=== PATIENT | female | born 1965 | race Caucasian/White ===

== ENCOUNTER → 2017-05-16 | Outpatient (CLI) | payer OTHER ==
[2017-05-12 15:22] VITALS: BMI 27.2
[2017-05-16 12:14] VITALS: BP 111/74; PULSE 72; RESP 16; TEMP 98.5
--- NOTE | 2017-05-16 12:59 | P.HPIM ---
History of Present Illness H&P Date: 05/16/17 This is a 51-year-old patient referred by Dr. Worley for chronic pain in neck, mid- back, and low back with radiation to RLE down to just above right knee. Patient has been taking medications from primary care physician including Hessmer medications with some relief and Ambien for sleep. She also uses marijuana regularly and has done so for the past nine months. Patient denies adverse drug effects from medications. Patient also denies new-onset weakness, bowel/ bladder incontinence, or any other signs or symptoms of cauda equina syndrome. There are no signs of acute intoxication, and no indications of medication diversion or overuse. Patient notes that pain worsens significantly with lifting or bending the legs and improves with rest, THC, and medication. Patient has used several types of medications for pain, including NSAIDS, OPIOIDS (Hessmer), tramadol, ANTIDEPRESSANTS (Cymbalta). Patient HAS NOT had surgery. Patient HAS NOT had injections previously. Patient HAS NOT had physical therapy recently. In addition to above, 13-point review of systems is also negative for chest pain , shortness of breath, changes in vision, changes in hearing, new onset weakness , abdominal pain, diarrhea, extreme fatigue, malaise, fever, skin changes, homicidal or suicidal ideation, or bowel or bladder incontinence. Vital Signs: Reviewed in EMR Gen: WDWN, AAOx3, NAD HEENT: NCAT, EOMI, hearing grossly normal Pulm: resp unlabored Abd: soft, NT, ND Neck: supple, trachea midline Cervical paravertebral tenderness: ++ Cervical Facet tenderness: + R side Thoracic paravertebral tenderness: ++ ROM in flexion lumbar spine: reduced ROM in extension lumbar spine: reduced Lumbar paravertebral tenderness: ++ Facet loading: + bilateral SI joint tenderness: neg Nimesh's test: neg Straight leg raise: + RLE at 10 degrees with numbness/tingling into right thigh Lower extremity: decreased ROM bilateral LEs secondary to pain Neuro: CN II-XII grossly intact Past Medical History Past Medical History: COPD, Fibromyalgia, Osteoarthritis (OA) Additional Past Medical History / Comment(s): insomnia, degenerative disks, History of Any Multi-Drug Resistant Organisms: None Reported Past Surgical History: Cholecystectomy, Hysterectomy Past Anesthesia/Blood Transfusion Reactions: No Reported Reaction Smoking Status: Current every day smoker - Past Family History Mother Family Medical History: Cancer Medications and Allergies Home Medications Medication Instructions Recorded Confirmed Type DULoxetine HCL [Cymbalta] 60 mg PO DAILY 04/23/16 05/16/17 History Albuterol Nebulized [Ventolin 2.5 mg INHALATION TID 05/12/17 05/16/17 History Nebulized] Cetirizine HCl [Zyrtec] 10 mg PO DAILY 05/12/17 05/16/17 History HYDROcodone/APAP 10-325MG [Hessmer 1 tab PO TID PRN 05/12/17 05/16/17 History 10-325] Montelukast [Singulair] 10 mg PO HS 05/12/17 05/16/17 History Omeprazole [PriLOSEC] 20 mg PO AC-BRKFST 05/12/17 05/16/17 History QUEtiapine [SEROquel] 50 mg PO HS 05/12/17 05/16/17 History Allergies Allergy/AdvReac Type Severity Reaction Status Date / Time No Known Allergies Allergy Verified 05/16/17 12:05 Physical Exam Vitals: Vital Signs Temp Pulse Resp BP Pulse Ox 05/16/17 12:07 98.5 F 72 16 111/74 99 Results Comments: MRI lumbar spine without contrast dated 03/10/2016 demonstrates the T12-L1, L1- L2, L2-L3, L3-L4, and L4-L5 levels are all within normal limits. The L5-S1 level demonstrates central disc protrusion mildly effacing the anterior thecal sac with patent bilateral neural foramina. Assessment and Plan (1) Fibromyalgia Status: Chronic (2) Lumbar disc herniation Status: Chronic (3) DDD (degenerative disc disease), lumbar Status: Chronic Plan: 1. Explanation: Opioid and psychological risk scores were reviewed. Diagnoses , prognoses, and multiple treatment options including but not limited to physical therapy, interventional therapies, adjuvant medical therapies, narcotic medication therapies, and surgery were discussed with the patient and all questions were answered to the patient's satisfaction. 2. Opioid agreement: none prescribed 3. Counseling: The patient was counseled extensively on SMOKING CESSATION, MARIJUANA, BODY MASS INDEX, EXERCISE. Specifically, the patient was instructed regarding the importance of smoking cessation, weight control, and exercise in the context of both chronic pain and overall health. 4. Procedures: lumbar and thoracic paraspinal TPI, consider LESI in future if numbness/tingling in RLE worsens 5. Consultations: none 6. Investigations: none 7. Medications: none prescribed 8. Disposition: f/u for procedure as scheduled PQRS measures: 1-Patient's medications are documented in the chart. 2-Tobacco use is positive, counseling given 3-Patient has not had a pneumococcal vaccine. 4-Advanced care planning discussed, patient unable to give. 5-Opioid contract signed with the patient. 6-Pain positive, follow-up visit or procedure scheduled 7-Patient's blood pressure measured and documented, and WNL. 8-Patient's weight was measured, and body mass index ABOVE the normal limits, and counseling was done. Patient instructed to follow up with PCP. 9-Patient WAS NOT identified as an unhealthy alcohol user. Time with Patient: Greater than 30
== END | disposition home or self-care (01) ==
LOC: PNWHC3 11:43
PROVIDERS: ATTEND Anesthesiology
DX: M51.26 Other intervertebral disc displacement, lumbar region (principal); M79.7 Fibromyalgia; M51.36 Other intervertebral disc degeneration, lumbar region; J44.9 Chronic obstructive pulmonary disease, unspecified; M19.90 Unspecified osteoarthritis, unspecified site; Z79.899 Other long term (current) drug therapy
CPT/HCPCS: 99211

== ENCOUNTER 2017-06-06 07:51 | Day surgery (SDC) | payer OTHER ==
[2017-06-02 14:23] VITALS: BMI 26.2
[2017-06-06] MEDS ORDERED: LACTATED RINGERS 1,000 ML IV ONE ×2 (08:15→09:09)
[2017-06-06 09:09] VITALS: RESP 18; TEMP 98.7
[2017-06-06] MEDS ORDERED: LIDOCAINE 1% 20 ML VIAL (10MG/ML) FOR IV START INTRADERMA ONE (09:16)
[2017-06-06] MEDS ORDERED: IV FLUID CONTINUATION 1,000 ML IV ONE ×2 (09:50)
--- NOTE | 2017-06-06 09:58 | P.PCN ---
Date of Procedure: 06/06/17 Surgeon: David Garrison Pathology: none sent Condition: stable Disposition: PACU Description of Procedure: PREOPERATIVE DIAGNOSIS: 1-myofascial pain syndrome POSTOPERATIVE DIAGNOSIS: 1-myofascial pain syndrome PROCEDURE 1. Trigger point injections (thoracic + lumbar paraspinal muscles) ANESTHESIA: Local with 1% lidocaine; IV sedation with Versed EBL: Minimal PROCEDURE INDICATION: The patient with myofascial pain in the area of the mid and low back that has not responded to conservative therapy. Patient presents for trigger point injection today; no use of blood thinners. PROCEDURE DESCRIPTION / TECHNIQUE: The patient was seen and identified in the preoperative area. Risks, benefits, complications, and alternatives were discussed with the patient, including but not limited to bleeding, infection, nerve damage, allergic reactions to medications, and incomplete pain relief. The patient agreed to proceed with the procedure and signed the consent after all questions were answered. IV was started, and vital signs were stable. Trigger points were marked prior to entering the procedure room in the places where the patient had severe pain to muscle palpation. Patient was taken to the OR and time out was completed to confirm patient position, procedure, laterality of pain, and allergies. The patient was placed in the prone position on procedure table and a pillow was placed under the abdomen to reduce lumbar lordosis. The area over the relevant muscle (thoracic and lumbar paraspinal area) was prepped and draped in the usual sterile fashion. Vital signs were closely monitored during the procedure. Conscious sedation was used during the procedure to decrease patients anxiety. Each of the previously marked areas was then infiltrated with 1% plain lidocaine using a 25g needle. After this, each point was entered with the same 25g needle and after a catch was felt, dry needling was performed. After negative aspiration at each point, 1 ml of a total of 12 ml (combination of 11 ml 0.5% bupivacaine and 80 mg Kenalog was injected in each area. Needle was withdrawn intact each time, skin was cleansed, and bandages were applied. COMPLICATIONS: None COMMENTS: None DISPOSITION / PLANS: The patient was placed in a supine position and transferred to the recovery area in a stable condition for observation. There was no evidence of lower extremity motor or sensory deficit after the procedure. Patient was discharged from the recovery room after meeting discharge criteria. Home discharge instructions were given to the patient by the staff. The patient was reexamined prior to discharge and there were no issues. The patient will schedule a follow up in the clinic in 2-4 weeks.
[2017-06-06 10:04] VITALS: BP 121/77; PULSE 72
== END 2017-06-06 10:16 | disposition home or self-care (01) ==
LOC: ORPAIN 07:51
PROVIDERS: ATTEND Anesthesiology
DX: G89.29 Other chronic pain (principal); M79.1 Myalgia; M54.16 Radiculopathy, lumbar region; M51.16 Intervertebral disc disorders with radiculopathy, lumbar region; J44.9 Chronic obstructive pulmonary disease, unspecified; F17.200 Nicotine dependence, unspecified, uncomplicated; M79.7 Fibromyalgia; M19.90 Unspecified osteoarthritis, unspecified site; Z79.891 Long term (current) use of opiate analgesic; Z79.899 Other long term (current) drug therapy; Z79.1 Long term (current) use of non-steroidal anti-inflammatories (NSAID)
CPT/HCPCS: 20552; J2250; J3301; J2001; 20553; 99152

== ENCOUNTER → 2017-06-22 | Outpatient (CLI) | payer OTHER ==
[2017-06-22 15:06] VITALS: BP 154/97; PULSE 76; RESP 18
--- NOTE | 2017-06-23 15:41 | P.PN ---
Subjective Progress Note Date: 06/22/17 This is follow-up visit for this patient with a history of severe and chronic low back pain secondary to lumbar degenerative disc disea , a flash of pain syndrome, we have done interventional pain management injection, trigger point injection she has no benefit from, she is currently using pain medication [place] 10/325 every 6 hours Patient denies any side effects of the medication, denies excessive drowsiness or sleepiness, denies suicidal ideation, and reports that the current pain medication is NOT helping To control the pain and improve activity of daily living Patient denies any motor or sensory deficit , patient denies any fever or night sweats, denies any change in the bowel movements or urination Physical Examinations : 1-Constitutiona : Cooperative , not in acute distress . 2-HEENT : nech ; supple , no Lymphadenopathy , no Thyromegaly , normal thyroid size . eyes : no ptosis , no icterus, no photophobia . ENT : normal of hearing , normal oropharynx , no Thrush . 3- Respiratory : Chest clear to auscultations Bilaterally , no wheezing , no Rhonchi . 4- Cardiovascular : regular rate and rhythem , S1 , S2 , no S3 , no S4. 5- Gastrointestinal : abdomen soft no tenderness , bowel sounds positive all four quadrents , no organomegally . 6- Genitourinary : Defferred . 7- neurologic : Cranial nerve II to XII intact , no focal neurological deffecit . 8-psychatric : alert , oriented X 3 , appropriate affect , intact judgment and insight . 9-Lymphatic : no Lymphadenopathy . 10- musculoskeltal : exams of the cervical spine = motor strength normal bilateral upper extremities facet loading test cervical area positive. Generalized tenderness over the cervical paravertebral muscles , A less tenderness over the thoracic paravertebral muscles exams of the Lumber spine = motor strength lower extremities ,thigh and legs .5/5 deep tendon reflexes : normal Knee Jerk , normal ankle Jerk . lumber facet Loading Test positive strait leg raising test positive at 30 degree , RT , LT , Fabere test positive RT and positive LT . Range of motion: Range of motion in flexion of the lumbar spine 30 degrees Range of motion range of motion of extension of the lumbar spine 10 Assessment and plan = Lumbar radiculopathy Clinical finding of fibromyalgia Patient could benefit from lumbar epidural steroid injections under fluoroscopy guidance Patient could benefit from Lyrica 25 mg 3 times a day increase in the next visit to 50 mg 3 times a day - diagnoses, prognosis, and treatment options including but not limited to physical therapy, surgical interventions, interventional therapies , and medication management including narcotics and adjuvant medication were discussed with the patient and all the questions answered Objective - Vital Signs Vital signs: Vital Signs Temp Pulse 76 06/22/17 15:00 Resp 18 06/22/17 15:00 BP 154/97 06/22/17 15:00 Pulse Ox 99 06/22/17 15:00 Intake & Output 06/22/17 06/23/17 06/23/17 18:59 06:59 18:59 Weight 65.544 kg
== END ==
LOC: PNWHC3 14:27
PROVIDERS: ATTEND Specialist
DX: M54.16 Radiculopathy, lumbar region (principal); M79.7 Fibromyalgia; Z79.891 Long term (current) use of opiate analgesic; Z79.899 Other long term (current) drug therapy
CPT/HCPCS: 99211

== ENCOUNTER 2017-09-07 08:06 | Day surgery (SDC) | payer OTHER ==
[2017-08-30 13:34] VITALS: BMI 27.1
[~2017-09-07 08:06] MED LIST: LACTATED RINGERS 1,000 ML IV ONE
[2017-09-07] MEDS ORDERED: LACTATED RINGERS 1,000 ML IV ONE (08:30)
[2017-09-07] MEDS ORDERED: LIDOCAINE 1% 20 ML VIAL (10MG/ML) FOR IV START INTRADERMA ONE (08:30)
[2017-09-07] MEDS ORDERED: IV FLUID CONTINUATION 1,000 ML IV ONE (10:13)
--- NOTE | 2017-09-07 10:31 | FL ---
EXAMINATION TYPE: FL guided pain mgmt statistic DATE OF EXAM: 09/07/2017 CLINICAL HISTORY: Low back pain. TECHNIQUE: Fluoroscopy. COMPARISON: None. FINDINGS: Fluoroscopic guidance was provided during pain relief procedure performed by Dr. Garrison . A total of 19 seconds of fluoroscopic time was utilized during the procedure and two spot images are acquired. Images acquired shows needle localization at L5 level from posterior approach. IMPRESSION: As Above.
--- NOTE | 2017-09-07 10:33 | P.PCN ---
Date of Procedure: 09/07/17 Surgeon: David Garrison Pathology: none sent Condition: stable Disposition: PACU Description of Procedure: PREOPERATIVE DIAGNOSIS: 1-Lumbar disc herniation POSTOPERATIVE DIAGNOSIS: same PROCEDURE 1. Lumbar epidural steroid injection under fluoroscopic guidance at the L5-S1 level. 2. Lumbar epidurogram. ANESTHESIA: Local with 1% lidocaine; IV sedation with Versed/fentanyl. EBL: Minimal PROCEDURE INDICATION: The patient with low back pain and radiculitis ( R > LLE) symptoms unresponsive to conservative treatment and trigger point injections. Fluoroscopy was used to optimize visualization of the needle placement and to maximize safety. No use of blood thinners. PROCEDURE DESCRIPTION / TECHNIQUE: The patient was seen and identified in the preoperative area. Risks, benefits, complications, and alternatives were discussed with the patient, including but not limited to bleeding, infection, nerve damage, allergic reactions to medications, and incomplete pain relief. The patient agreed to proceed with the procedure and signed the consent after all questions were answered. IV was started, and vital signs were stable. Patient was taken to the OR and time out was completed to confirm patient position, procedure, laterality of pain, and allergies. The patient was placed in the prone position on procedure table and a pillow was placed under the abdomen to reduce lumbar lordosis. The lumbosacral area was prepped and draped in the usual sterile fashion. Critical pause was taken. Vital signs were closely monitored during the procedure. Conscious sedation was used during the procedure to decrease patients anxiety. Using anterior-posterior fluoroscopy, the L5-S1 interlaminar space was identified and the skin over this site was marked and then infiltrated with 1% lidocaine subcutaneously. Subsequently, a 20-gauge Tuohy epidural needle was inserted and advanced toward the epidural space using the Loss of resistance technique and guided by AP and lateral fluoroscopy. The correct needle position in the epidural space was verified with the injection of 2 mL of the water soluble contrast dye Omnipaque 300 contrast and observing an excellent epidurogram with the epidural spread of the dye, after negative aspiration for blood and CSF and in the absence of paresthesias. Again after negative aspiration, a 6 ml mixture containing 20 mg of PF Decadron and 2 ml of preservative free Normal Saline, and 2 ml of preservative free lidocaine 1% solution was injected and a washout of epidurogram was seen. Needle was withdrawn intact, skin was cleansed, and bandages were applied. COMPLICATIONS: None COMMENTS: DISPOSITION / PLANS: The patient was placed in a supine position and transferred to the recovery area in a stable condition for observation. There was no evidence of lower extremity motor or sensory deficit after the procedure. Patient was discharged from the recovery room after meeting discharge criteria. Home discharge instructions were given to the patient by the staff. The patient was reexamined prior to discharge and there were no issues. The patient will schedule a repeat LESI in 3-4 weeks.
[2017-09-07 23:22] VITALS: BP 119/76; PULSE 78; RESP 16; TEMP 98.3
== END 2017-09-07 11:06 | disposition home or self-care (01) ==
LOC: ORPAIN 08:06
PROVIDERS: ATTEND Anesthesiology
DX: M51.16 Intervertebral disc disorders with radiculopathy, lumbar region (principal); F32.9 Major depressive disorder, single episode, unspecified; J45.909 Unspecified asthma, uncomplicated; Z79.899 Other long term (current) drug therapy
CPT/HCPCS: 62323; J2250; J1100; Q9965; J3010; 62321; 99152

== ENCOUNTER 2017-10-04 07:06 | Day surgery (SDC) | payer OTHER ==
[2017-09-27 14:22] VITALS: BMI 27.1
[2017-10-04] MEDS ORDERED: LACTATED RINGERS 1,000 ML IV SCH (07:45)
[2017-10-04 07:50] VITALS: RESP 16; TEMP 97.8
[2017-10-04] MEDS ORDERED: LIDOCAINE 1% 20 ML VIAL (10MG/ML) FOR IV START INTRADERMA ONE (07:56)
[2017-10-04] MEDS ORDERED: methylPREDNISolone ACETATE 40 MG/ML 1 ML VIAL ONE (08:19)
--- NOTE | 2017-10-04 08:35 | P.PCN ---
Date of Procedure: 10/04/17 Surgeon: David Garrison Pathology: none sent Condition: stable Disposition: PACU Description of Procedure: PREOPERATIVE DIAGNOSIS: 1-Lumbar disc herniation POSTOPERATIVE DIAGNOSIS: same PROCEDURE 1. Lumbar epidural steroid injection under fluoroscopic guidance at the L5-S1 level. 2. Lumbar epidurogram. ANESTHESIA: Local with 1% lidocaine; IV sedation with Versed/fentanyl. EBL: Minimal PROCEDURE INDICATION: The patient with low back pain and radiculitis (R > L) symptoms unresponsive to conservative treatment and trigger point injections. Fluoroscopy was used to optimize visualization of the needle placement and to maximize safety. No use of blood thinners. PROCEDURE DESCRIPTION / TECHNIQUE: The patient was seen and identified in the preoperative area. Risks, benefits, complications, and alternatives were discussed with the patient, including but not limited to bleeding, infection, nerve damage, allergic reactions to medications, and incomplete pain relief. The patient agreed to proceed with the procedure and signed the consent after all questions were answered. IV was started, and vital signs were stable. Patient was taken to the OR and time out was completed to confirm patient position, procedure, laterality of pain, and allergies. The patient was placed in the prone position on procedure table and a pillow was placed under the abdomen to reduce lumbar lordosis. The lumbosacral area was prepped and draped in the usual sterile fashion. Critical pause was taken. Vital signs were closely monitored during the procedure. Conscious sedation was used during the procedure to decrease patients anxiety. Using anterior-posterior fluoroscopy, the L5-S1 interlaminar space was identified and the skin over this site was marked and then infiltrated with 1% lidocaine subcutaneously. Subsequently, a 20-gauge 3.5-inch Tuohy epidural needle was inserted and advanced toward the epidural space using the Loss of resistance technique and guided by AP and lateral fluoroscopy. The correct needle position in the epidural space was verified with the injection of 2 mL of the water soluble contrast dye Omnipaque 300 contrast and observing an excellent epidurogram with the epidural spread of the dye, after negative aspiration for blood and CSF and in the absence of paresthesias. Again after negative aspiration, a 6 ml mixture containing 80 mg DepoMedrol and 2 ml of preservative free Normal Saline, and 2 ml of preservative free lidocaine 1% solution was injected and a washout of epidurogram was seen. Needle was withdrawn intact, skin was cleansed, and bandages were applied. COMPLICATIONS: None COMMENTS: DISPOSITION / PLANS: The patient was placed in a supine position and transferred to the recovery area in a stable condition for observation. There was no evidence of lower extremity motor or sensory deficit after the procedure. Patient was discharged from the recovery room after meeting discharge criteria. Home discharge instructions were given to the patient by the staff. The patient was reexamined prior to discharge and there were no issues. The patient will schedule a repeat LESI (#3) in 3-4 weeks.
--- NOTE | 2017-10-04 08:42 | FL ---
EXAMINATION TYPE: FL guided pain mgmt statistic DATE OF EXAM: 10/04/2017 CLINICAL HISTORY: Low back pain. TECHNIQUE: Fluoroscopy. COMPARISON: None. FINDINGS: Fluoroscopic guidance was provided during pain relief procedure performed by Dr. Garrison. A total of 5 seconds of fluoroscopic time was utilized during the procedure and 3 spot images are acqu ired. Images acquired shows needle localization with contrast injection lumbosacral junction. IMPRESSION: As Above.
[2017-10-04 08:54] VITALS: BP 140/66; PULSE 75
== END 2017-10-04 09:06 | disposition home or self-care (01) ==
LOC: ORPAIN 07:06
PROVIDERS: ATTEND Anesthesiology
DX: M51.16 Intervertebral disc disorders with radiculopathy, lumbar region (principal); J45.909 Unspecified asthma, uncomplicated; F32.9 Major depressive disorder, single episode, unspecified; Z79.899 Other long term (current) drug therapy
CPT/HCPCS: 62323; J2250; Q9965; J3010

== ENCOUNTER 2017-11-10 19:28 | Emergency (ER) | payer OTHER ==
[2017-11-10 19:34] VITALS: BP 167/80; PULSE 97; RESP 20; TEMP 100
--- NOTE | 2017-11-10 19:47 | ED ---
General Adult HPI - General Chief complaint: Extremity Injury, Upper Stated complaint: hand injury Time Seen by Provider: 11/10/17 19:42 Source: patient, RN notes reviewed Mode of arrival: ambulatory Limitations: no limitations - History of Present Illness Initial comments: Patient 52-year-old female who presents emergency room today with chief complaint of injury to the left hand. Patient states she actually closed in a car door just prior to arrival. She doesn't pain the second through fourth metacarpals and second through fourth digits. Patient does admit that is worse with movement. Denies any other complaints or associated symptoms. Patient denies any recent fever, chills, shortness of breath, chest pain, back pain, abdominal pain, nausea or vomiting, or any other complaints. - Related Data Home Medications Medication Instructions Recorded Confirmed DULoxetine HCL [Cymbalta] 60 mg PO DAILY 04/23/16 11/10/17 Albuterol Nebulized [Ventolin 2.5 mg INHALATION RT-TID PRN 05/12/17 11/10/17 Nebulized] Cetirizine HCl [Zyrtec] 10 mg PO BID 05/12/17 11/10/17 Montelukast [Singulair] 10 mg PO HS 05/12/17 11/10/17 Omeprazole [PriLOSEC] 20 mg PO AC-BRKFST 05/12/17 11/10/17 Pregabalin [Lyrica] 25 mg PO TID 08/30/17 11/10/17 QUEtiapine [SEROquel] 200 mg PO HS 08/30/17 11/10/17 Cholecalciferol [Vitamin D3] 2,000 unit PO DAILY 09/27/17 11/10/17 Potassium Chloride ER [K-Dur 20] 20 meq PO BID 11/10/17 11/10/17 Previous Rx's Medication Instructions Recorded Ibuprofen [Motrin] 600 mg PO Q6HR PRN #30 day 11/10/17 Allergies Allergy/AdvReac Type Severity Reaction Status Date / Time No Known Allergies Allergy Verified 11/10/17 20:03 Review of Systems ROS Statement: Those systems with pertinent positive or pertinent negative responses have been documented in the HPI. ROS Other: All systems not noted in ROS Statement are negative. Past Medical History Past Medical History: COPD, Fibromyalgia, GERD/Reflux, Osteoarthritis (OA), Pneumonia, Skin Disorder Additional Past Medical History / Comment(s): insomnia, degenerative discs, migraines, heart murmer, "dry skin" History of Any Multi-Drug Resistant Organisms: None Reported Past Surgical History: Cholecystectomy, Hysterectomy, Tonsillectomy Additional Past Surgical History / Comment(s): PAIN CLINIC PROCEDURES Past Anesthesia/Blood Transfusion Reactions: No Reported Reaction Past Psychological History: Anxiety, Depression Smoking Status: Current every day smoker Past Alcohol Use History: None Reported Past Drug Use History: Marijuana - Past Family History Mother Family Medical History: Cancer General Exam - General Exam Comments Initial Comments: General: The patient is awake and alert, in no distress, and does not appear acutely ill. Neck: The neck is supple, there is no tenderness or JVD. Cardiovascular: There is a regular rate and rhythm. No murmur, rub or gallop is appreciated. Respiratory: Lungs are clear to auscultation, respirations are non-labored, breath sounds are equal. No wheezes, stridor, rales, or rhonchi. Musculoskeletal: Patient does have moderate swelling to the posterior aspect of the left hand dominant to the second and third MCP joints. Tenderness on Palpation proximal second and third joints into the MCP joint. Patient does have tenderness diffusely through the second through fifth metacarpals. Nontender to the left wrist or forearm. Sensations are intact. Pulses bilateral 2+. Cap refill less than 2 seconds. Neurological: A&O x 3. CN II-XII intact, There are no obvious motor or sensory deficits. Coordination appears grossly intact. Speech is normal. Skin: Skin is warm and dry and no rashes or lesions are noted. Psychiatric: Normal mood and affect. Limitations: no limitations Course Vital Signs 11/10/17 19:30 Temperature 100.0 F H Pulse Rate 97 Respiratory 20 Rate Blood Pressure 167/80 O2 Sat by Pulse 100 Oximetry Medical Decision Making - Medical Decision Making Patient's x-ray of the left hand is negative for any fracture dislocation. Patient does have some moderate swelling. She is advised ice elevate. Advised use ibuprofen for pain. Advised follow-up in 7 tenderness for repeat x-rays if symptoms are not improving. Disposition Clinical Impression: Hand contusion Disposition: HOME SELF-CARE Condition: Good Instructions: Contusion in Adults (ED) Additional Instructions: Please continue to ice elevate the affected area at least 4 times daily for 20 minutes at a time. Please use ibuprofen for pain. Please follow-up in 7-10 days for repeat x-rays if symptoms persist. Prescriptions: Ibuprofen [Motrin] 600 mg PO Q6HR PRN #30 day PRN Reason: Pain Referrals: Nimesh Worley MD [Primary Care Provider] - 1-2 days Time of Disposition: 20:05
--- NOTE | 2017-11-10 19:59 | XR ---
Left hand HISTORY: Pain and swelling 3 views of the left hand Bone mineralization, joint spaces and alignment are maintained. There is no fracture or dislocation. Soft tissue swelling is present. IMPRESSION: Soft tissue swelling
== END 2017-11-10 20:12 | disposition home or self-care (01) ==
LOC: EC 19:28
DX: S60.222A Contusion of left hand, initial encounter (principal); K21.9 Gastro-esophageal reflux disease without esophagitis; M79.7 Fibromyalgia; F32.9 Major depressive disorder, single episode, unspecified; F17.200 Nicotine dependence, unspecified, uncomplicated; Z79.899 Other long term (current) drug therapy; Z87.01 Personal history of pneumonia (recurrent); W23.0XXA Caught, crushed, jammed, or pinched between moving objects, initial encounter
CPT/HCPCS: 99283

== ENCOUNTER 2017-12-01 06:19 | Day surgery (SDC) | payer OTHER ==
[2017-11-29 10:46] VITALS: BMI 26.5
[2017-12-01] MEDS: LACTATED RINGERS 1,000 ML IV SCH ×2 (07:27→07:30)
[2017-12-01 07:33] VITALS: RESP 16; TEMP 98.7
[2017-12-01] MEDS ORDERED: IV FLUID CONTINUATION 1,000 ML IV ONE (07:51)
--- NOTE | 2017-12-01 07:58 | FL ---
EXAMINATION TYPE: FL guided pain mgmt statistic DATE OF EXAM: 12/01/2017 CLINICAL HISTORY: Low back pain. TECHNIQUE: Fluoroscopy. COMPARISON: None. FINDINGS: Fluoroscopic guidance was provided during pain relief procedure performed by Dr. Garrison . A total of 6 seconds of fluoroscopic time was utilized during the procedure and 3 spot images are acq uired. Images acquired shows needle localization at level of lumbosacral junction epidural space. IMPRESSION: As Above.
[2017-12-01 08:08] VITALS: BP 120/78; PULSE 73
--- NOTE | 2017-12-01 08:58 | P.PCN ---
Date of Procedure: 12/01/17 Surgeon: David Garrison Pathology: none sent Condition: stable Disposition: PACU Description of Procedure: PREOPERATIVE DIAGNOSIS: 1-Lumbar disc herniation POSTOPERATIVE DIAGNOSIS: same PROCEDURE 1. Lumbar epidural steroid injection under fluoroscopic guidance at the L5-S1 level. 2. Lumbar epidurogram. ANESTHESIA: Local with 1% lidocaine; IV sedation with Versed/fentanyl. EBL: Minimal PROCEDURE INDICATION: The patient with low back pain and radiculitis (R > L) symptoms unresponsive to conservative treatment and trigger point injections. Fluoroscopy was used to optimize visualization of the needle placement and to maximize safety. No use of blood thinners. LESI #3 today. PROCEDURE DESCRIPTION / TECHNIQUE: The patient was seen and identified in the preoperative area. Risks, benefits, complications, and alternatives were discussed with the patient, including but not limited to bleeding, infection, nerve damage, allergic reactions to medications, and incomplete pain relief. The patient agreed to proceed with the procedure and signed the consent after all questions were answered. IV was started, and vital signs were stable. Patient was taken to the OR and time out was completed to confirm patient position, procedure, laterality of pain, and allergies. The patient was placed in the prone position on procedure table and a pillow was placed under the abdomen to reduce lumbar lordosis. The lumbosacral area was prepped and draped in the usual sterile fashion. Critical pause was taken. Vital signs were closely monitored during the procedure. Conscious sedation was used during the procedure to decrease patients anxiety. Using anterior-posterior fluoroscopy, the L5-S1 interlaminar space was identified and the skin over this site was marked and then infiltrated with 1% lidocaine subcutaneously. Subsequently, a 20-gauge 3.5-inch Tuohy epidural needle was inserted and advanced toward the epidural space using the Loss of resistance technique and guided by AP and lateral fluoroscopy. The correct needle position in the epidural space was verified with the injection of 2 mL of the water soluble contrast dye Omnipaque 300 contrast and observing an excellent epidurogram with the epidural spread of the dye, after negative aspiration for blood and CSF and in the absence of paresthesias. Again after negative aspiration, a 6 ml mixture containing 80 mg DepoMedrol and 2 ml of preservative free Normal Saline, and 2 ml of preservative free lidocaine 1% solution was injected and a washout of epidurogram was seen. Needle was withdrawn intact, skin was cleansed, and bandages were applied. COMPLICATIONS: None COMMENTS: DISPOSITION / PLANS: The patient was placed in a supine position and transferred to the recovery area in a stable condition for observation. There was no evidence of lower extremity motor or sensory deficit after the procedure. Patient was discharged from the recovery room after meeting discharge criteria. Home discharge instructions were given to the patient by the staff. The patient was reexamined prior to discharge and there were no issues. The patient will schedule a follow up in clinic in 3-4 weeks.
== END 2017-12-01 08:21 | disposition home or self-care (01) ==
LOC: ORPAIN 06:19
PROVIDERS: ATTEND Anesthesiology
DX: M51.16 Intervertebral disc disorders with radiculopathy, lumbar region (principal); I10 Essential (primary) hypertension; E78.5 Hyperlipidemia, unspecified
CPT/HCPCS: 62323; J2250; J1030; J3010; Q9966

== ENCOUNTER → 2018-01-09 | Outpatient (CLI) | payer OTHER ==
[2018-01-09 12:52] VITALS: BP 150/71; PULSE 89; RESP 16
--- NOTE | 2018-01-09 13:02 | P.PN ---
Progress Note - Text Progress Note Date: 01/09/18 Patient returns for followup for chronic back and leg pain, along with neck and arm pain with radiation to fingers on both hands with numbness/tingling. Patient recently underwent LESI x 3, which provided some relief for low back for interval since procedures. Patient continues on medications for pain from PCP and marijuana use with good relief. Patient denies adverse drug effects from medications. Today, pt denies new-onset weakness, bowel/bladder incontinence, or any other signs or symptoms of cauda equina syndrome. There are no signs of acute intoxication, and no indications of medication diversion or overuse. In addition to above, 13-point review of systems is also negative for chest pain , shortness of breath, changes in vision, changes in hearing, new onset weakness , abdominal pain, diarrhea, extreme fatigue, malaise, fever, skin changes, homicidal or suicidal ideation, or bowel or bladder incontinence. Vital Signs: Reviewed in EMR Gen: WDWN, AAOx3, NAD HEENT: NCAT, EOMI, hearing grossly normal Pulm: resp unlabored Abd: soft, NT, ND Neck: supple, trachea midline Cervical paravertebral tenderness: ++ Cervical Facet tenderness: + R side Spurling's: + R side Imaging: Reviewed in EMR Assessment: 1. cervical radiculitis 2. lumbar radiculitis 3. chronic pain syndrome 1. Explanation: Opioid and psychological risk scores were reviewed. Diagnoses , prognoses, and multiple treatment options including but not limited to physical therapy, interventional therapies, adjuvant medical therapies, narcotic medication therapies, and surgery were discussed with the patient and all questions were answered to the patient's satisfaction. 2. Opioid agreement: none prescribed 3. Counseling: The patient was counseled extensively on SMOKING CESSATION, MARIJUANA, BODY MASS INDEX, EXERCISE. Specifically, the patient was instructed regarding the importance of smoking cessation, weight control, and exercise in the context of both chronic pain and overall health. 4. Procedures: none for now, consider cervical GILDA in future 5. Consultations: none 6. Investigations: MRI C-spine 7. Medications: none prescribed 8. Disposition: f/u for re-eval in 4 weeks after MRI PQRS measures: 1-Patient's medications are documented in the chart. 2-Tobacco use is positive, counseling given 3-Patient has not had a pneumococcal vaccine. 4-Advanced care planning discussed, patient unable to give. 5-Opioid contract signed with the patient. 6-Pain positive, follow-up visit or procedure scheduled 7-Patient's blood pressure measured and documented, and WNL. 8-Patient's weight was measured, and body mass index ABOVE the normal limits, and counseling was done. Patient instructed to follow up with PCP. 9-Patient WAS NOT identified as an unhealthy alcohol user.
== END ==
LOC: PNWHC3 12:26
PROVIDERS: ATTEND Anesthesiology
DX: G89.4 Chronic pain syndrome (principal); M54.12 Radiculopathy, cervical region; M54.16 Radiculopathy, lumbar region; Z72.0 Tobacco use; F12.20 Cannabis dependence, uncomplicated
CPT/HCPCS: 99211

== ENCOUNTER → 2018-02-06 | Outpatient (CLI) | payer OTHER ==
[2018-02-06 14:00] VITALS: BP 132/80; PULSE 77; RESP 16
--- NOTE | 2018-02-06 14:30 | P.PAINPG ---
Subjective Progress Note Date: 02/06/18 This is a follow-up visit for this patient with a history of severe and chronic low back pain today] lumbar radiculitis, lumbar herniated disc disease. Lumbar epidural steroid injection 3 which helped her low back pain, patient also complaining of severe neck pain with radiation to the upper extremity , more to the right side, associated with numbness and tingling sensation, she continued to get pain medication Percocet 5/325 every 6 hours from her primary care, and Lyrica 50 mg twice a day and Motrin 800 mg 3 times a day, she denies any side effect of the medication she denies any excessive drowsiness sleepiness, she denies any fever or night sweats and that is no change in bowel movement or urination, last visit we ordered an MRI for the cervical spine , but the patient reported that the MRI slough done because the insurance did not approve that she had recent MRI of the cervical spine done different institution, which was ordered by Dr. Jauregui the neurologist, Objective - Vital Signs Vital signs: Vital Signs Temp Pulse 77 02/06/18 13:55 Resp 16 02/06/18 13:55 BP 132/80 02/06/18 13:55 Pulse Ox 95 02/06/18 13:55 Intake & Output 02/05/18 02/06/18 02/06/18 18:59 06:59 18:59 Weight 67.132 kg - Exam Physical Examinations : 1-Constitutiona : Cooperative , not in acute distress . 2-HEENT : nech ; supple , no Lymphadenopathy , normal thyroid size . eyes : no ptosis , no icterus, no photophobia . ENT : normal of hearing , normal oropharynx , no Thrush . 3- Respiratory : Chest clear to auscultations Bilaterally , no wheezing , no Rhonchi . 4- Cardiovascular : regular rate and rhythem , S1 , S2 , no S3 , no S4. 5- Gastrointestinal : abdomen soft no tenderness , bowel sounds , no organomegally . 6- Genitourinary : Defferred . 7- neurologic : Cranial nerve II to XII intact , no focal neurological deffecit . 8-psychatric : alert , oriented X 3 , appropriate affect , intact judgment and insight . 9-Lymphatic : no Lymphadenopathy . 10- musculoskeltal : cervical spine = motor stregnth in the deltoid and biceps, motor stregnth biceps and the wrist extensors (C6) . motor stregnth in the triceps muscle . deep tendon reflexes normal at the biceps Right , Left normal at the brachioradia Right , Left Normal at the triceps Right ,Left cervical facet loading test positive. , Lumber spine = normal moter stegnth lower extremities ,thigh and legs .5/5 deep tendon reflexes : normal Knee Jerk , normal ankle Jerk . lumber facet Loading Test positive strait leg raising test positive at 30 degree Right , positve at 30 degree Left Fabere test positive Right and positive Left Assessment and Plan Plan: Assessment and plan= Lumbar radiculopathy, lumbar herniated disc disease, improved after lumbar epidural steroid injection, Cervical radiculopathy , patient had MRI done on different institution where waiting for the MRI report, patient can be scheduled to have cervical epidural steroid injection, before we do the procedure. We'll review the MRI report which will be obtained from Dr. Jauregui office PQRS Measure Charge Sheet Measure #130: Documentation of Current Meds in Medical Chart: Patient's medications documented in chart () Measure #226: Tobacco Use: Screen & Cessation Intervention: Pt screened for tobacco use AND intervention given Measure #111: Pneumonia Vaccination: Pneumococcal vaccine administered or previously received Measure #47: Advance Care Plan: Advance care planning discussed & documented, plan or surrogate given Measure #412: Opioid Treatment Agreement: No documentation of signed opioid treatment agreement Measure #408: Opioid Therapy Follow-up Evaluation: Patient had NO f/u eval minimum every 3 months during opioid therapy Measure #317: Preventitive Care & Scrn High Bld Press & F/U: Normal blood pressure, f/u not required Measure #128: Body Mass Index (BMI) Screening & Follow-up: BMI documented ABOVE normal parameters - f/u documented Measure #131: Pain Assessment & Follow-up: Pain positive & plan documented, Follow-up scheduled Measure #431: Unhealthy Alcohol Use Preventative Care & Scrn: Patient not identified as an unhealthy alcohol user PQRS Narrative: Smoking Status Current every day smoker Do You Want the Pneumonia Vaccine Up to Date Vaccine AT THIS TIME? Blood Pressure 132/80 Pain Intensity [Lower 8 Posterior Back] Scale Used Numeric (1 - 10) Hx Alcohol Use (MH) No Home Medications: Ambulatory Orders DULoxetine HCL [Cymbalta] 60 mg PO DAILY 08/19/16 Albuterol Nebulized [Ventolin Nebulized] 2.5 mg INHALATION RT-TID PRN 05/12/17 Cetirizine HCl [Zyrtec] 10 mg PO DAILY 05/12/17 Montelukast [Singulair] 10 mg PO HS 05/12/17 Omeprazole [PriLOSEC] 20 mg PO AC-BRKFST 05/12/17 Pregabalin [Lyrica] 50 mg PO BID 08/30/17 Cholecalciferol [Vitamin D3] 2,000 unit PO DAILY 09/27/17 Ibuprofen [Motrin] 600 mg PO Q6HR PRN #30 day 11/10/17 Potassium Chloride ER [K-Dur 10] 10 meq PO BID 11/10/17 oxyCODONE HCL/ACETAMINOPHEN [Percocet 5-325 mg] 1 tab PO BID PRN 01/09/18 Controlled Substance Measures - Controlled Substance Measures Is patient prescribed a controlled substance at discharge?: No When asked, does pt state using other controlled substances?: No If prescribed controlled substance>3 days was MAPS reviewed?: No If Rx opioid, was Start Talking consent form obtained?: No If opioid is for acute pain is fill amount 7 days or less?: No Was information provided regarding opioid addiction?: No
== END | disposition home or self-care (01) ==
LOC: PNWHC3 13:04
PROVIDERS: ATTEND Specialist
DX: G89.29 Other chronic pain (principal); M54.5 Low back pain; M51.16 Intervertebral disc disorders with radiculopathy, lumbar region; M54.12 Radiculopathy, cervical region; F17.200 Nicotine dependence, unspecified, uncomplicated; Z79.891 Long term (current) use of opiate analgesic; Z79.1 Long term (current) use of non-steroidal anti-inflammatories (NSAID); Z79.51 Long term (current) use of inhaled steroids; Z79.899 Other long term (current) drug therapy
CPT/HCPCS: 99211

== ENCOUNTER 2018-02-27 06:30 | Day surgery (SDC) | payer OTHER ==
[2018-02-21 12:55] VITALS: BMI 27.6
[2018-02-27 06:55] VITALS: RESP 16; TEMP 98.9
[2018-02-27] MEDS ORDERED: LACTATED RINGERS 1,000 ML IV SCH (07:00)
[2018-02-27] MEDS ORDERED: IV FLUID CONTINUATION 1,000 ML IV ONE (07:51)
--- NOTE | 2018-02-27 07:55 | FL ---
Fluoroscopy INDICATION: Pain FINDINGS: Fluoroscopy time: 1 seconds. Images obtained: 1. IMPRESSIONS: 1. Documentation of fluoroscopy.
[2018-02-27 08:36] VITALS: BP 115/72; PULSE 72
--- NOTE | 2018-03-03 07:17 | P.OP ---
Date of Procedure: 02/27/18 Description of Procedure: PREOPERATIVE DIAGNOSIS: Cervical radiculopathy Cervical degenerative disc disease POSTOPERATIVE DIAGNOSIS: Cervical radiculopathy Cervical degenerative disc disease PROCEDURE Cervical neural steroid injection under fluoroscopic guidance at the C7-T1 interspace. ANESTHESIA: Local with 1% lidocaine 3 ml and IV sedation with Versed 2 mg EBL: Minimal PROCEDURE INDICATION: The patient with cervical radicular symptoms unresponsive to conservative treatment. Fluoroscopy was used to optimize visualization of the needle placement and to maximize safety. Patient had an MRI recently which demonstrates a C6 7 disc bulge. She has pain in her neck, right shoulder and down her right arm. PROCEDURE DESCRIPTION / TECHNIQUE: The patient was seen and identified in the preoperative area. Risks, benefits , complications including but not limited to infections ,bleeding ,allergic reaction to the medications ,nerve damage and incomplete pain relief, and alternatives were discussed with the patient. The patient agreed to proceed with the procedure and signed the consent. IV was started, and vital signs were stable. Patient was taken to the OR and time out was completed. The patient was placed in the prone position on procedure table and a pillow was placed under the chest area.. The cervical area was prepped and draped in the usual sterile fashion. Conscious sedation was used during the procedure to decrease patient s anxiety. Vital signs was monitered during the entire procedure. Using anterior-posterior fluoroscopy, the C7-T1 interlaminar space was identified and the skin over this site was marked and then infiltrated with 1% lidocaine subcutaneously. Subsequently, a 20-gauge Tuohy epidural needle was inserted and advanced toward the epidural space using the loss of resistance technique and guided by AP and lateral fluoroscopy. The correct needle position in the epidural space was verified with the injection of contrast and observing an excellent epidurogram with the epidural spread of the dye, after negative aspiration for blood and CSF and in the absence of paresthesias. Again after negative aspiration, a 4 ml mixture containing 20 mg of Dexamethasone was injected. Needle was withdrawn intact, skin was cleansed, and bandages were applied. COMPLICATIONS: None DISPOSITION / PLANS: The patient was placed in a supine position and transferred to the recovery area in a stable condition for observation. There was no evidence of lower extremity motor or sensory deficit after the procedure. Patient was discharged from the recovery room after meeting discharge criteria. Home discharge instructions were given to the patient by the staff. The patient was reexamined prior to discharge. The patient will schedule a follow up in the clinic in 2-4 weeks.
== END 2018-02-27 08:50 | disposition home or self-care (01) ==
LOC: ORPAIN 06:30
PROVIDERS: ATTEND Pain Medicine Pain Medicine
DX: G89.29 Other chronic pain (principal); M50.10 Cervical disc disorder with radiculopathy, unspecified cervical region; Z79.891 Long term (current) use of opiate analgesic; Z79.899 Other long term (current) drug therapy; M51.16 Intervertebral disc disorders with radiculopathy, lumbar region; F17.200 Nicotine dependence, unspecified, uncomplicated
CPT/HCPCS: 62321; J2250; J1030

== ENCOUNTER → 2018-06-07 | Outpatient (CLI) | payer OTHER ==
[2018-06-07 14:50] VITALS: BP 130/84; RESP 16
--- NOTE | 2018-06-07 18:07 | P.PAINPG ---
Subjective Progress Note Date: 06/07/18 Principal diagnosis: Cervical ridiculopathy, lumbar spondylosis this is a 52-year-old woman with a history of neck pain and arm pain as well as low back pain. She is exhausted conservative measurements including physical therapy as well as conservative medications. She is currently being prescribed these by her primary care physician. She has undergone cervical epidural steroid injections in the past. She had one approximately two months ago. She said this gave her complete relief of her symptoms for a possibly one week. She presents they discuss options for treating her neck and arm pain as well as her low back pain. She denies any bowel or bladder dysfunction. She denies any lumbar radicular components. Objective - Vital Signs Vital signs: Vital Signs Temp Pulse Resp 16 06/07/18 14:40 BP 130/84 06/07/18 14:40 Pulse Ox 99 06/07/18 14:40 Intake & Output 06/06/18 06/07/18 06/07/18 18:59 06:59 18:59 Weight 67.585 kg - Exam General: alert and oriented. She is not sedated. She answered all questions appropriately. HEENT: normocephalic atraumatic respiratory: patient has occasional expiratory wheezes cardiovascular: regular in rate and rhythm abdomen: nontender nondistended extremities: no edema Musculoskeletal: no focal motor deficits in the musculature of the upper extremities or lower extremities. The set loading maneuvers are positive bilaterally. The patient has significant pain to palpation over her sacroiliac joints bilaterally. This appears to be the major generator of her low back pain. Neurologic: no focal sensory deficits in the upper or lower extremities. Reflexes are within normal limits in the upper and lower extremities. Assessment and Plan (1) Cervical radiculopathy Current Visit: Yes Status: Acute Code(s): M54.12 - RADICULOPATHY, CERVICAL REGION SNOMED Code(s): 92273712 (2) Spondylosis of lumbar region without myelopathy or radiculopathy Narrative/Plan: I discussed the patient's are options. These include conservative measures as well as interventional therapies. I recommended that she proceed forward with the cervical epidural steroid injection. She has had these procedures in the past and they have been helpful for her. This will then be followed by bilateral sacroiliac joint injections. I have counseled her strongly on stopping smoking as well as changing her nutritional habits to avoid inflammation causing foods. If she fails to receive benefit from these injections, I would recommend she follow-up with an orthopedic digital campaign specialist to discuss interventional surgical options. Current Visit: Yes Status: Acute Code(s): M47.816 - SPONDYLOSIS W/O MYELOPATHY OR RADICULOPATHY, LUMBAR REGION SNOMED Code(s): 76607546 (3) Sacroiliac dysfunction Current Visit: Yes Status: Acute Code(s): M53.3 - SACROCOCCYGEAL DISORDERS, NOT ELSEWHERE CLASSIFIED SNOMED Code(s): 508471708 (4) Sacroiliac joint dysfunction of both sides Current Visit: Yes Status: Acute Code(s): M53.3 - SACROCOCCYGEAL DISORDERS, NOT ELSEWHERE CLASSIFIED SNOMED Code(s): 157291275 PQRS Measure Charge Sheet Measure #226: Tobacco Use: Screen & Cessation Intervention: Pt screened for tobacco use AND intervention given Measure #111: Pneumonia Vaccination: Pneumococcal vaccine NOT administered or previously given Measure #47: Advance Care Plan: Advance care planning discussed & documented, pt chose/unable to give Measure #412: Opioid Treatment Agreement: No documentation of signed opioid treatment agreement Measure #408: Opioid Therapy Follow-up Evaluation: Patient had NO f/u eval minimum every 3 months during opioid therapy Measure #317: Preventitive Care & Scrn High Bld Press & F/U: Pre-hypertensive or hypertensive BP documented, pt will f/u with PCP Measure #131: Pain Assessment & Follow-up: Pain positive & plan documented Measure #431: Unhealthy Alcohol Use Preventative Care & Scrn: Patient not identified as an unhealthy alcohol user PQRS Narrative: Smoking Status Current every day smoker Do You Want the Pneumonia No Vaccine AT THIS TIME? Blood Pressure 130/84 Pain Intensity [Generalized] 8 Scale Used Numeric (1 - 10) Hx Alcohol Use (MH) No Home Medications: Ambulatory Orders DULoxetine HCL [Cymbalta] 60 mg PO DAILY 04/23/16 Albuterol Nebulized [Ventolin Nebulized] 2.5 mg INHALATION RT-TID PRN 05/12/17 Cetirizine HCl [Zyrtec] 10 mg PO DAILY 05/12/17 Montelukast [Singulair] 10 mg PO HS 05/12/17 Omeprazole [PriLOSEC] 20 mg PO AC-BRKFST 05/12/17 Cholecalciferol [Vitamin D3] 2,000 unit PO DAILY 09/27/17 Ibuprofen [Motrin] 600 mg PO Q6HR PRN #30 day 11/10/17 Potassium Chloride ER [K-Dur 10] 10 meq PO BID 11/10/17 oxyCODONE HCL/ACETAMINOPHEN [Percocet 5-325 mg] 1 tab PO BID PRN 01/09/18 OXcarbazepine [Trileptal] 600 mg PO BID 02/21/18 Controlled Substance Measures - Controlled Substance Measures Is patient prescribed a controlled substance at discharge?: No
== END ==
LOC: PNWHC3 14:26
PROVIDERS: ATTEND Pain Medicine Pain Medicine
DX: M54.12 Radiculopathy, cervical region (principal); M47.816 Spondylosis without myelopathy or radiculopathy, lumbar region; M53.3 Sacrococcygeal disorders, not elsewhere classified; F17.200 Nicotine dependence, unspecified, uncomplicated; Z79.899 Other long term (current) drug therapy; Z79.1 Long term (current) use of non-steroidal anti-inflammatories (NSAID)
CPT/HCPCS: 99211

== ENCOUNTER 2018-06-28 09:58 | Day surgery (SDC) | payer OTHER ==
[2018-06-26 17:00] VITALS: BMI 26.6
[2018-06-28 10:52] VITALS: PULSE 78; RESP 20; TEMP 98.7
--- NOTE | 2018-06-28 12:16 | P.PCN ---
Date of Procedure: 06/28/18 Procedure(s) Performed: . PROCEDURE 1. Cervical epidural steroid injection under fluoroscopic guidance, C7-T1 2. Cervical epidurogram. PREOPERATIVE DIAGNOSIS: 1- Cervical radiculopathy., POSTOPERATIVE DIAGNOSIS: : 1- Cervical radiculopathy. ANESTHESIA: Local anesthesia with lidocaine 1 % , and moderate sedation, with Versed 2 mg and Fentanyl 100 mcg. EBL 0 PROCEDURE INDICATION: The patient with neck pain and radiculitis unresponsive to conservative treatment consents for procedure. PROCEDURE DESCRIPTION / TECHNIQUE: The patient was seen and identified in the preoperative area. Risks, benefits, complications, including but not limited to infections ,bleeding , allergic reactions to the medications ,and not complete pain releife, and alternatives were discussed with the patient, the patient agreed to proceed with the procedure and signed the consent. Patient was taken to the OR and time out was completed. The patient was placed in the prone position on the procedure table. A pillow was placed under the patients chest to increase the cervical interlaminar space. The cervical area was prepped and draped in the usual sterile fashion. Vital signs were closely monitored during the procedure. Conscious sedation was used during the procedure to decrease patients anxiety. Using anterior-posterior fluoroscopy, the C7-T1 interlaminar space was identified and the skin over this site was marked and then infiltrated with 1% lidocaine subcutaneously. Subsequently, a 20-gauge 3-1/2-inch Tuohy epidural needle was inserted and advanced toward the epidural space by means of the `` hanging-drop technique and guided by AP and lateral fluoroscopy. The correct needle position in the epidural space was verified with the injection of 2 mL of the water soluble contrast dye [id number]-[id number] and observing an excellent epidurogram with the epidural spread of the dye, after negative aspiration for blood and CSF and in the absence of paresthesias. Again after negative aspiration, mixture containing 20 mg Dexamethasone and 2 ml of preservative- free normal saline injected and a washout of epidurogram was seen. Needle was withdrawn intact, skin was cleansed, and bandages were applied. Complications= none. Disposition= patient was placed in supine position and transferred to the recovery room area in stable condition and there was no evidence of upper or lower extremity motor or sensory deficit after the procedure patient was discharged from recovery room after discharge criteria met and home discharge instructions was given by the staff and patient will follow with the pain clinic in 2-4 weeks
[2018-06-28 13:13] VITALS: BP 126/75
--- NOTE | 2018-06-28 14:59 | FL ---
Fluoroscopy HISTORY: Pain 5 seconds fluoroscopy time supplied to the referring clinician. 1 intraoperative C-arm images docume nt the procedure. See dictated report from anesthesia.
== END 2018-06-28 13:00 | disposition home or self-care (01) ==
LOC: ORPAIN 09:58
PROVIDERS: ATTEND Specialist
DX: M54.12 Radiculopathy, cervical region (principal); J44.9 Chronic obstructive pulmonary disease, unspecified; M79.7 Fibromyalgia
CPT/HCPCS: 62321; J2250; J1100; J3010; Q9966; 99152

== ENCOUNTER 2018-07-20 08:00 | Day surgery (SDC) | payer OTHER ==
[2018-07-14 15:13] VITALS: BMI 27.4
[~2018-07-20 08:00] MED LIST changes: -LACTATED RINGERS 1,000 ML IV ONE; +SODIUM CHLORIDE 0.9% 500 ML 500 ML IV SCH
[2018-07-20 08:15] VITALS: RESP 16; TEMP 98.2
--- NOTE | 2018-07-20 08:32 | P.PCN ---
Date of Procedure: 07/20/18 Surgeon: Danita Godinez Pathology: none sent Condition: stable Disposition: PACU Description of Procedure: PROCEDURE 1. Cervical epidural steroid injection under fluoroscopic guidance, C7-T1 right paramedian approach. 2. Cervical epidurogram. : PREOPERATIVE DIAGNOSIS: Cervical radiculopathy, cervical spondylosis without myelopathy POSTOPERATIVE DIAGNOSIS: : Same as above ANESTHESIA: Local anesthesia with 1% lidocaine and IV moderate conscious sedation with Versed and Fentanyl . EBL 0 PROCEDURE INDICATION: The patient with neck pain and radiculopathy unresponsive to conservative treatment consents for procedure. PROCEDURE DESCRIPTION / TECHNIQUE: The patient was seen and identified in the preoperative area. Risks, benefits, complications, including but not limited to infections ,bleeding , allergic reactions to the medications ,and not complete pain relief, and alternatives were discussed with the patient, the patient agreed to proceed with the procedure and signed the consent. Patient was taken to the OR and time out was completed. The patient was placed in the prone position on the procedure table. A pillow was placed under the patients chest to increase the flexion of the cervical spine . The cervical area was prepped and draped in the usual sterile fashion. Vital signs were closely monitored during the procedure. Conscious sedation was used during the procedure to decrease patients anxiety. Using anterior-posterior fluoroscopy, the C7-T1 interlaminar space was identified and the skin over this site was marked and then infiltrated with 1% lidocaine subcutaneously. Subsequently, a 20-gauge 3-1/2-inch Tuohy epidural needle was inserted and advanced toward the epidural space by means of loss of resistance to air technique and guided by AP and lateral fluoroscopy. The needle tip contacted the lamina of T1 vertebra first, then it was walked off the bone and into the epidural space using the loss of to air and fluoroscopic guidance to identify the epidural space. The correct needle position in the epidural space was verified with the injection of 1 mL of the water soluble contrast dye Isovue and observing an excellent epidurogram with the epidural spread of the dye, after negative aspiration for blood and CSF and in the absence of paresthesias. Again after negative aspiration, a 5 ml mixture containing 10 mg of Decadron and 4 ml of preservative free Normal Saline solution was injected and a washout of epidurogram was seen. Needle was withdrawn intact, skin was cleansed, and bandages were applied.
[2018-07-20] MEDS ORDERED: IV FLUID CONTINUATION 1,000 ML IV ONE (08:41)
--- NOTE | 2018-07-20 08:48 | FL ---
Fluoroscopy History: back pain epidural steroid injection, 5sec fl time
[2018-07-20 08:54] VITALS: BP 114/57; PULSE 74
== END 2018-07-20 09:08 | disposition home or self-care (01) ==
LOC: ORPAIN 08:00
PROVIDERS: ATTEND Anesthesiology
DX: M47.22 Other spondylosis with radiculopathy, cervical region (principal); J44.9 Chronic obstructive pulmonary disease, unspecified; F17.200 Nicotine dependence, unspecified, uncomplicated
CPT/HCPCS: 62321; J2250; J1100; J3010; Q9966

== ENCOUNTER → 2018-09-13 | Outpatient (CLI) | payer OTHER ==
[2018-09-13 13:53] VITALS: BP 153/81; PULSE 78; RESP 20
--- NOTE | 2018-09-14 06:52 | P.PN ---
Subjective Progress Note Date: 09/13/18 this is a 52-year-old female ,with the chronic history of severe neck pain and arm pain as well as low back pain. She failed the conservative measurements including physical therapy as well as conservative medications. She is currently being prescribed these by her primary care physician. She has undergone cervical epidural steroid injections x3 , She said this gave her some relief of her symptoms for a possibly one week. She denies any bowel or bladder dysfunction. She denies any fever or night sweats and no change in bowel movement or urination, she denies any side effect of the medication, currently she reported that her neck pain is constant and increases with any activity, and she is having severe low back pain that interfere with her quality of life, realistically we have done lumbar epidural steroid injection and she had no benefit from it Physical Examinations : 1-Constitutiona : Cooperative , not in acute distress . 2-HEENT : nech ; supple , no Lymphadenopathy , normal thyroid size . eyes : no ptosis , no icterus, no photophobia . ENT : normal of hearing , normal oropharynx , no Thrush . 3- Respiratory : Chest clear to auscultations Bilaterally , no wheezing , no Rhonchi . 4- Cardiovascular : regular rate and rhythem , S1 , S2 , no S3 , no S4. 5- Gastrointestinal : abdomen soft no tenderness , bowel sounds , no organomegally . 6- Genitourinary : Defferred . 7- neurologic : Cranial nerve II to XII intact , no focal neurological deffecit . 8-psychatric : alert , oriented X 3 , appropriate affect , intact judgment and insight . 9-Lymphatic : no Lymphadenopathy . 10- musculoskeltal : Cervical Spine motor stregnth in the deltoid and biceps, normal right side , normal Left side motor stregnth biceps and the wrist extensors normal right side ,normal left side . motor stregnth in the triceps muscle . normal Right side , normal Left side deep tendon reflexes normal at the biceps , normal at Brachioradialis , normal at triceps. positive cervical facet loading test . Lumber spine moter stegnth lower extremities , thigh and legs 5/5 Right side , 5/5 Left side deep tendon reflexes : normal Knee Jerk , normal ankle Jerk positive lumber facet Loading Test Range of motion of the lumbar spine Flexion 30 degrees, extension 10 degrees strait leg raising test , positive at 30 degree Fabere test positive RT and positive LT . Diagnostic studies MRI of the cervical spine cervical degenerative disc disease and cervical spondylosis MRI of the lumbar spine L5-S1 lumbar spondylosis with lumbar facet arthropathy and lumbar degenerative disc disease Assessment and plan= cervical radiculopathy , cervical spondylosis with cervical facet arthropathy Lumbar degenerative disc disease, lumbar spondylosis Patient continued to have severe neck pain and severe low back pain , we have done cervical epidural steroid injection she had partial and short-term benefit from it, and in the past we have done lumbar epidural steroid injection and she had partial and short-term benefit from it, currently she reported that most of her pain in the cervical area, patient will be scheduled to have diagnostic medial branch block cervical area C3 4/C4 5/C5 6 And if she has a good result then we will proceed with a radiofrequency ablation of the medial branch cervical area, in the future we can target her low back pain by scheduling her to have diagnostic medial branch block lumbar area, PQRS Measure Charge Sheet Measure #226: Tobacco Use: Screen & Cessation Intervention: Pt screened for tobacco use AND intervention given Measure #111: Pneumonia Vaccination: Pneumococcal vaccine NOT administered or previously given Measure #47: Advance Care Plan: Advance care planning discussed & documented, pt chose/unable to give Measure #412: Opioid Treatment Agreement: No documentation of signed opioid treatment agreement Measure #408: Opioid Therapy Follow-up Evaluation: Patient had NO f/u eval minimum every 3 months during opioid therapy Measure #317: Preventitive Care & Scrn High Bld Press & F/U: Pre-hypertensive or hypertensive BP documented, pt will f/u with PCP Patient BMI above the normal limit she is 28.0 Measure #131: Pain Assessment & Follow-up: Pain positive & plan documented Measure #431: Unhealthy Alcohol Use Preventative Care & Scrn: Patient not identified as an unhealthy alcohol user PQRS Narrative: - Controlled Substance Measures Is patient prescribed a controlled substance at discharge?: No Objective - Vital Signs Vital signs: Vital Signs Temp Pulse 78 09/13/18 13:43 Resp 20 09/13/18 13:43 BP 153/81 09/13/18 13:43 Pulse Ox 98 09/13/18 13:43 Intake & Output 09/13/18 09/13/18 09/14/18 06:59 18:59 06:59 Weight 67.132 kg
== END | disposition home or self-care (01) ==
LOC: PNWHC3 13:12
PROVIDERS: ATTEND Specialist
DX: M51.17 Intervertebral disc disorders with radiculopathy, lumbosacral region (principal); M47.26 Other spondylosis with radiculopathy, lumbar region; M47.22 Other spondylosis with radiculopathy, cervical region; M46.92 Unspecified inflammatory spondylopathy, cervical region; Z79.891 Long term (current) use of opiate analgesic
CPT/HCPCS: 99211

== ENCOUNTER 2018-10-02 07:22 | Day surgery (SDC) | payer OTHER ==
[2018-09-28 15:19] VITALS: BMI 26.6
[2018-10-02] MEDS ORDERED: LIDOCAINE 1% 20 ML VIAL (10MG/ML) FOR IV START INTRADERMA ONE (07:54)
[2018-10-02 07:55] VITALS: TEMP 98.5
[2018-10-02] MEDS ORDERED: LACTATED RINGERS 1,000 ML IV ONE (07:55)
--- NOTE | 2018-10-02 09:14 | P.PCN ---
Date of Procedure: 10/02/18 Procedure(s) Performed: PREOPERATIVE DIAGNOSIS: Cervical Spondylosis with Facet Arthropathy.without myelopathy POSTOPERATIVE DIAGNOSIS: Cervical Spondylosis Facet Arthropathy. Without myelopathy. PROCEDURES: Diagnostic Bilateral C3-4, C4-5 , C5-6, medial branch blocks, with fluoroscopic guidance ANESTHESIA: Local with 1% lidocaine; moderate sedation with Versed. 1 mg , and fentanyl 50 micrograms EBL: Minimal PROCEDURE INDICATION: The patient with neck pain secondary to cervical arthropathy unresponsive to more conservative treatments. PROCEDURE DESCRIPTION / TECHNIQUE: The patient was seen and identified in the preoperative area. Risks, benefits, complications, and alternatives were discussed with the patient, the patient agreed to proceed with the procedure and signed the consent. IV was started. Vital signs remained stable throughout the procedure. Patient was taken to the OR and time out was completed. The patient was placed in the prone position on the procedure table. A pillow was placed under the patients chest to increase the cervical interlaminar space. The cervical area was prepped and draped in the usual sterile fashion. Critical pause was taken. Vital signs were closely monitored during the procedure. Conscious sedation was used during the procedure to decrease patients anxiety. Using cross-table lateral fluoroscopy, the centroid of the trapezoid of right C3 , C4 , C5 was identified, marked, and localized with 1% lidocaine 1 ml at each level for skin and Sub Q infiltrations . Subsequently, a 25 G 3 spinal needle was advanced guided by fluoroscopy to the centroid of the trapezoid of Right C3, C4 , C5, . [place] tip position was confirmed at the centroid of the trapezoids of Right C3 , C4 , C5 with anteroposterior fluoroscopy. Subsequently, 1.5 ml of preservative-free Ropivacaine 0.5% mixed with Depo- medrol 20 mg and half ml of the mixture was injected after negative aspiration for blood and CSF. [place] was then removed intact the same procedure was repeated at the left C3-4, C4-5, C5-6, levels. COMPLICATIONS: No acute complications. COMMENTS: DISPOSITION / PLANS: The patient was placed in a supine position and transferred to the recovery area in a stable condition for observation and was discharged from the recovery room after meeting discharge criteria. Home discharge instructions given to the patient by the staff. The patient was reexamined prior to discharge. The patient will schedule a follow up in the clinic in 2-4 weeks.
[2018-10-02] MEDS ORDERED: IV FLUID CONTINUATION 1,000 ML IV ONE (09:18)
[2018-10-02 09:20] VITALS: RESP 16
[2018-10-02 09:34] VITALS: BP 129/76; PULSE 68
--- NOTE | 2018-10-02 10:38 | FL ---
Fluoroscopy History: NEEDLE PLACEMENT 32 SEC FLUORO, 4 IMAGES SCANNED
== END 2018-10-02 09:49 | disposition home or self-care (01) ==
LOC: ORPAIN 07:22
PROVIDERS: ATTEND Specialist
DX: M47.812 Spondylosis without myelopathy or radiculopathy, cervical region (principal); M50.30 Other cervical disc degeneration, unspecified cervical region
CPT/HCPCS: 64490; 64491; 64492; J2250; J1030; J3010; 99152

== ENCOUNTER 2018-10-16 09:44 | Day surgery (SDC) | payer OTHER ==
[2018-10-12 10:29] VITALS: BMI 26.6
[2018-10-16 10:19] VITALS: TEMP 98.1
[2018-10-16] MEDS ORDERED: LIDOCAINE 1% 20 ML VIAL (10MG/ML) FOR IV START INTRADERMA ONE (10:30)
[2018-10-16] MEDS ORDERED: LACTATED RINGERS 1,000 ML IV ONE ×2 (10:30→11:45)
--- NOTE | 2018-10-16 11:16 | P.GSHP ---
History of Present Illness H&P Date: 10/16/18 53-year-old female with a history of neck pain and cervical spondylosis. Had greater than 90% relief with first set of cervical medial branch blocks. Mild numbness and tingling in her digits bilaterally in the upper extremity. Physical Exam : CVS: Regular rate and rhythm, no peripheral edema Pulmonary: Nonlabored, no wheezing Cervical facet loading positive bilateral Plan: Bilateral cervical medial branch blocks at C3-C4, C4-C5, C5-C6. If Patient has greater than 80% relief we'll perform radio frequency ablation at the respective levels. Past Medical History Past Medical History: COPD, Fibromyalgia, GERD/Reflux, Osteoarthritis (OA), Pneumonia Additional Past Medical History / Comment(s): insomnia, migraines, heart murmur , back pain, patient states itching and she had bx by Dr. Hunter approx 3 weeks ago. History of Any Multi-Drug Resistant Organisms: MRSA Date of last positivie culture/infection: 05/2018 MDRO Source:: face Past Surgical History: Cholecystectomy, Hysterectomy, Tonsillectomy Additional Past Surgical History / Comment(s): PAIN CLINIC PROCEDURES Past Anesthesia/Blood Transfusion Reactions: No Reported Reaction Smoking Status: Current every day smoker - Past Family History Mother Family Medical History: Cancer Brother(s) Family Medical History: Deep Vein Thrombosis (DVT) Medications and Allergies Home Medications Medication Instructions Recorded Confirmed Type DULoxetine HCL [Cymbalta] 60 mg PO DAILY 04/23/16 10/16/18 History Albuterol Nebulized [Ventolin 2.5 mg INHALATION RT-TID PRN 05/12/17 10/16/18 History Nebulized] Cholecalciferol [Vitamin D3] 2,000 unit PO DAILY 09/27/17 10/16/18 History Ibuprofen [Motrin] 600 mg PO Q6HR PRN #30 day 11/10/17 10/16/18 Rx Potassium Chloride ER [K-Dur 10] 20 meq PO DAILY 11/10/17 10/16/18 History oxyCODONE HCL/ACETAMINOPHEN 1 tab PO BID PRN 01/09/18 10/16/18 History [Percocet 5-325 mg] OXcarbazepine [Trileptal] 300 mg PO DAILY 02/21/18 10/16/18 History Cetirizine HCl [Zyrtec] 10 mg PO DAILY 06/26/18 10/16/18 History DULoxetine HCL [Cymbalta] 20 mg PO HS 06/26/18 10/16/18 History Magnesium 400 mg PO HS 06/26/18 10/16/18 History OXcarbazepine [Trileptal] 1,200 mg PO HS 06/26/18 10/16/18 History Cream For Itching 1 applicate TOPICAL DIRECTED PRN 09/28/18 10/16/18 History Ranitidine HCl [Zantac] 150 mg PO BID 09/28/18 10/16/18 History Black Cohosh Root [Black Cohosh] 200 mg PO DAILY 10/12/18 10/16/18 History Allergies Allergy/AdvReac Type Severity Reaction Status Date / Time No Known Allergies Allergy Verified 10/16/18 10:33 Surgical - Exam Vital Signs Temp Pulse Resp BP Pulse Ox 98.1 F 72 18 143/70 100 10/16/18 10:18 10/16/18 10:18 10/16/18 10:18 10/16/18 10:18 10/16/18 10:18
--- NOTE | 2018-10-16 11:18 | P.PCN ---
Date of Procedure: 10/16/18 Description of Procedure: PREOPERATIVE DIAGNOSIS: Cervical Spondylosis with Facet Arthropathy.without myelopathy POSTOPERATIVE DIAGNOSIS: Cervical Spondylosis Facet Arthropathy. Without myelopathy. PROCEDURES: Diagnostic Bilateral C3-4, C4-5 , C5-6, medial branch blocks, with fluoroscopic guidance ANESTHESIA: Local with 1% lidocaine; moderate sedation with Versed 1 mg , and fentanyl 50 micrograms EBL: Minimal PROCEDURE INDICATION: The patient with neck pain secondary to cervical arthropathy unresponsive to more conservative treatments. PROCEDURE DESCRIPTION / TECHNIQUE: The patient was seen and identified in the preoperative area. Risks, benefits, complications, and alternatives were discussed with the patient, the patient agreed to proceed with the procedure and signed the consent. IV was started. Vital signs remained stable throughout the procedure. Patient was taken to the OR and time out was completed. The patient was placed in the prone position on the procedure table. A pillow was placed under the patients chest to increase the cervical interlaminar space. The cervical area was prepped and draped in the usual sterile fashion. Critical pause was taken. Vital signs were closely monitored during the procedure. Conscious sedation was used during the procedure to decrease patients anxiety. Using cross-table lateral fluoroscopy, the centroid of the trapezoid of right C3 , C4 , C5 was identified, marked, and localized with 1% lidocaine 1 ml at each level for skin and Sub Q infiltrations . Subsequently, a 25 G 3 spinal needle was advanced guided by fluoroscopy to the centroid of the trapezoid of Right C3, C4 , C5, . [place] tip position was confirmed at the centroid of the trapezoids of Right C3 , C4 , C5 with anteroposterior fluoroscopy. Subsequently, 1.5 ml of preservative-free Ropivacaine 0.5% mixed with Depo- medrol 20 mg and half ml of the mixture was injected after negative aspiration for blood and CSF. [place] was then removed intact the same procedure was repeated at the left C3-4, C4-5, C5-6, levels. COMPLICATIONS: No acute complications. COMMENTS: DISPOSITION / PLANS: The patient was placed in a supine position and transferred to the recovery area in a stable condition for observation and was discharged from the recovery room after meeting discharge criteria. Home discharge instructions given to the patient by the staff. The patient was reexamined prior to discharge. Patient will be scheduled for cervical radio frequency ablation of C3-C4, C4-C5, C5-C6.
[2018-10-16 11:47] VITALS: RESP 16
--- NOTE | 2018-10-16 11:58 | FL ---
Fluoroscopy INDICATION: Pain FINDINGS: Fluoroscopy time: 21 seconds. Images obtained: 8. IMPRESSIONS: 1. Documentation of fluoroscopy.
[2018-10-16 12:03] VITALS: BP 144/86; PULSE 66
== END 2018-10-16 12:16 | disposition home or self-care (01) ==
LOC: ORPAIN 09:44
PROVIDERS: ATTEND Anesthesiology
DX: M47.812 Spondylosis without myelopathy or radiculopathy, cervical region (principal); F17.200 Nicotine dependence, unspecified, uncomplicated; J44.9 Chronic obstructive pulmonary disease, unspecified; K21.9 Gastro-esophageal reflux disease without esophagitis; G43.909 Migraine, unspecified, not intractable, without status migrainosus; M19.90 Unspecified osteoarthritis, unspecified site; M79.7 Fibromyalgia; Z79.899 Other long term (current) drug therapy; Z87.01 Personal history of pneumonia (recurrent); Z86.14 Personal history of Methicillin resistant Staphylococcus aureus infection
CPT/HCPCS: 64490; 64491; 64492; J2250; J1100; J3010; 99152

== ENCOUNTER → 2018-11-01 | Outpatient (CLI) | payer OTHER ==
[2018-11-01 12:45] VITALS: BP 162/99; PULSE 84; RESP 18
--- NOTE | 2018-11-02 06:09 | P.PAINPG ---
Subjective Progress Note Date: 11/01/18 This is a follow-up visit for 53 years old female, with a chronic history of severe low back pain and neck pain, she stateswith lumbar degenerative disc disease and lumbar spondylosis, and cervical radiculopathy and cervical spondylosis, recently we have done diagnostic medial branch block cervical area C34/C4 5/C5 6 2 , patient reported that her pain before the first diagnostic medial branch block was 9/10 dropped to 3/10 , and the pain before the second diagnostic medial branch block was 10 over 10 dropped to 3-4/10 , and she is here today to discuss the results of the diagnostic medial branch block and to evaluate if she is a good candidate to have radiofrequency ablation of the medial branch cervical, she continued to use pain medication Percocet 5/325 twice a day and Motrin 600 mg every 8 hours when necessary, she denies any side effects of the medication she denies any excessive drowsiness or sleepiness, she denies any motor or sensory deficit, she is having some low back pain, especially with activity for this reason she is requesting to have lumbar support brace Objective - Vital Signs Vital signs: Vital Signs Temp Pulse 84 11/01/18 12:37 Resp 18 11/01/18 12:37 BP 162/99 11/01/18 12:37 Pulse Ox Intake & Output 11/01/18 11/01/18 11/02/18 06:59 18:59 06:59 Weight 66.224 kg - Exam Physical Examinations : -Constitutiona : Cooperative , not in acute distress . -HEENT : nech ; supple , no Lymphadenopathy , normal thyroid size . eyes : no ptosis , no icterus, no photophobia - Respiratory : Chest clear to auscultations Bilaterally , no wheezing , no Rhonchi . - Cardiovascula : regular rate and rhythem , S1 , S2 , no S3 , no S4. - Gastrointestina : abdomen soft no tenderness , bowel sounds , no organomegally . - Genitourinary : Defferred . - neurologic : Cranial nerve II to XII intact , no focal neurological deffecit . -psychatric : alert , oriented X 3 , appropriate affect , intact judgment and insight . -Lymphatic : no Lymphadenopathy . - musculoskeltal : Cervical Spine motor stregnth in the deltoid and biceps, normal right side , normal Left side motor stregnth biceps and the wrist extensors normal right side ,normal left side . motor stregnth in the triceps muscle . normal Right side , normal Left side deep tendon reflexes normal at the biceps , normal at Brachioradialis , normal at triceps. positive cervical facet loading test . Spurling test positive bilaterally. Neck distraction test positive bilaterally. Dimitrios sign positive bilaterally. Lumber spine moter stegnth lower extremities ,thigh and legs 5/5 Right side , 5/5 Left side deep tendon reflexes : normal Knee Jerk , normal ankle Jerk positive lumber facet Loading Test Range of motion of the lumbar spine Flexion 30 degrees, extension 10 degrees strait leg raising test , positive at 45 degree Fabere test positive RT and positive LT . Assessment and Plan Plan: Assessment and plan= Chronic severe neck pain secondary to cervical spondylosis with cervical facet arthropathy, patient had a good result from the diagnostic medial branch block cervical area. chronic low back pain secondary to lumbar degenerative disc disease , lumbar spondylosis with lumbar facet arthropathy . The patient will be good candidate to have radiofrequency thermocoagulation for the medial branch cervical area , right side first C34/C4 5/C5 6 and will do the left side later on, patient could benefit from a soft lumbar support braces to help her low back pain Time with Patient: Less than 30 PQRS Measure Charge Sheet Measure #130: Documentation of Current Meds in Medical Chart: Patient's medications documented in chart Measure #226: Tobacco Use: Screen & Cessation Intervention: Pt screened for tobacco use AND intervention given Measure #111: Pneumonia Vaccination: Pneumococcal vaccine administered or previously received Measure #47: Advance Care Plan: Advance care planning discussed & documented, pt chose/unable to give Measure #412: Opioid Treatment Agreement: No documentation of signed opioid treatment agreement Measure #408: Opioid Therapy Follow-up Evaluation: Patient had NO f/u eval minimum every 3 months during opioid therapy Measure #317: Preventitive Care & Scrn High Bld Press & F/U: Pre-hypertensive or hypertensive BP documented, pt will f/u with PCP Measure #128: Body Mass Index (BMI) Screening & Follow-up: BMI documented ABOVE normal parameters - f/u documented Measure #131: Pain Assessment & Follow-up: Pain positive & plan documented, Follow-up scheduled Measure #431: Unhealthy Alcohol Use Preventative Care & Scrn: Patient not identified as an unhealthy alcohol user PQRS Narrative: Smoking Status Current every day smoker Do You Want the Pneumonia Vaccine Up to Date Vaccine AT THIS TIME? Blood Pressure 162/99 Pain Intensity [Bilateral 10 Upper Back] Pain Intensity [Neck] 8 Hx Alcohol Use (MH) No Home Medications: Ambulatory Orders DULoxetine HCL [Cymbalta] 60 mg PO DAILY 04/23/16 Albuterol Nebulized [Ventolin Nebulized] 2.5 mg INHALATION RT-TID PRN 05/12/17 Cholecalciferol [Vitamin D3] 2,000 unit PO DAILY 09/27/17 Ibuprofen [Motrin] 600 mg PO Q6HR PRN #30 day 11/10/17 Potassium Chloride ER [K-Dur 10] 20 meq PO DAILY 11/10/17 oxyCODONE HCL/ACETAMINOPHEN [Percocet 5-325 mg] 1 tab PO BID PRN 01/09/18 OXcarbazepine [Trileptal] 300 mg PO DAILY 02/21/18 Cetirizine HCl [Zyrtec] 10 mg PO DAILY 06/26/18 DULoxetine HCL [Cymbalta] 20 mg PO HS 06/26/18 Magnesium 400 mg PO HS 06/26/18 OXcarbazepine [Trileptal] 1,200 mg PO HS 06/26/18 Cream For Itching 1 applicate TOPICAL DIRECTED PRN 09/28/18 Ranitidine HCl [Zantac] 150 mg PO BID 09/28/18 Black Cohosh Root [Black Cohosh] 200 mg PO DAILY 10/12/18 Controlled Substance Measures - Controlled Substance Measures Is patient prescribed a controlled substance at discharge?: No
== END ==
LOC: PNWHC3 12:09
PROVIDERS: ATTEND Specialist
DX: G89.29 Other chronic pain (principal); M47.812 Spondylosis without myelopathy or radiculopathy, cervical region; M51.36 Other intervertebral disc degeneration, lumbar region; M47.816 Spondylosis without myelopathy or radiculopathy, lumbar region; M46.92 Unspecified inflammatory spondylopathy, cervical region; M46.96 Unspecified inflammatory spondylopathy, lumbar region; F17.200 Nicotine dependence, unspecified, uncomplicated; Z79.899 Other long term (current) drug therapy; Z79.891 Long term (current) use of opiate analgesic; Z79.1 Long term (current) use of non-steroidal anti-inflammatories (NSAID)
CPT/HCPCS: 99211

== ENCOUNTER 2018-11-14 07:46 | Day surgery (SDC) | payer OTHER ==
[2018-11-08 14:46] VITALS: BMI 26.9
[2018-11-14 08:10] VITALS: TEMP 97.5
[2018-11-14] MEDS ORDERED: LIDOCAINE 1% 20 ML VIAL (10MG/ML) FOR IV START INTRADERMA ONE (08:18)
[2018-11-14] MEDS ORDERED: LACTATED RINGERS 1,000 ML IV ONE (08:18)
--- NOTE | 2018-11-14 09:16 | P.PCN ---
Date of Procedure: 11/14/18 Surgeon: Danita Godinez Pathology: none sent Condition: stable Disposition: PACU Description of Procedure: PREOPERATIVE DIAGNOSIS: Cervical spondylosis with Facet Arthropathy without myelopathy. POSTOPERATIVE DIAGNOSIS: Cervical spondylosis with Facet Arthropathy without myelopathy. PROCEDURES: Right Radiofrequency thermocoagulation, C3,4,5 medial branch with Fluroscopy Guidence ANESTHESIA: Local with 1% lidocaine; IV sedation with fentanyl and Versed. EBL: Minimal PROCEDURE INDICATION: The patient with neck pain secondary to cervical arthropathy who had more than 50% relief of her pain with previous diagnostic cervical medial branch block. PROCEDURE DESCRIPTION / TECHNIQUE: The patient was seen and identified in the preoperative area. Risks, benefits, complications, and alternatives were discussed with the patient, the patient agreed to proceed with the procedure and signed the consent. IV was started. Vital signs remained stable throughout the procedure. Patient was taken to the OR and time out was completed. The patient was placed in the prone position on the procedure table. A pillow was placed under the patients chest to increase the cervical interlaminar space. The cervical area was prepped and draped in the usual sterile fashion. Critical pause was taken. Vital signs were closely monitored during the procedure. Conscious sedation was used during the procedure to decrease patients anxiety. Using cross-table lateral fluoroscopy, the center of the trapezoid-shaped cervical pillars of C3,4,5were identified, marked, and localized with 1% lidocaine. Subsequently, a 20 [id number] radiofrequency cannula with a 10-mm active tip was advanced guided by A/P and transverse views of fluoroscopy to the target points mentioned above. . Each site then underwent motor testing at 2 Hz and 0 to 3 volt with local stimulation, but no radicular symptoms down the arm. Thereafter C3,4,5 sites underwent radiofrequency thermocoagulation at 80 degrees celsius for 90 seconds after injecting 0.5 ml of PF lidocaine 1%. After thermocoagulation, 1 ml of the block solution containing Dexamethasone 10 mg and 2 mL of preservative-free normal saline was injected at the C3,4,5 levels after negative aspiration of CSF and blood and with no paresthesias. Cannulas were retracted. Skin was cleansed and bandages were applied. COMPLICATIONS: No acute complications. COMMENTS: DISPOSITION / PLANS: The patient was placed in a supine position and transferred to the recovery area in a stable condition for observation and was discharged from the recovery room after meeting discharge criteria. Home discharge instructions given to the patient by the staff. The patient was reexamined prior to discharge.
--- NOTE | 2018-11-14 09:30 | FL ---
EXAMINATION TYPE: FL guided pain mgmt statistic DATE OF EXAM: 11/14/2018 HISTORY: Pain Rt. Cervical RF. 19 sec. fluoro time. [address] Godinez
[2018-11-14 09:32] VITALS: BP 127/72; PULSE 66; RESP 16
[2018-11-14] MEDS ORDERED: IV FLUID CONTINUATION 1,000 ML IV ONE (09:39)
== END 2018-11-14 09:53 | disposition home or self-care (01) ==
LOC: ORPAIN 07:46
PROVIDERS: ATTEND Anesthesiology
DX: M47.812 Spondylosis without myelopathy or radiculopathy, cervical region (principal)
CPT/HCPCS: 64633; 64634; J2250; J1100; J3010; 99152

== ENCOUNTER 2018-11-29 07:56 | Day surgery (SDC) | payer OTHER ==
[2018-11-22 14:11] VITALS: BMI 25.6
[2018-11-29 08:41] VITALS: TEMP 98
[2018-11-29] MEDS ORDERED: LACTATED RINGERS 1,000 ML IV ONE (08:42)
[2018-11-29] MEDS ORDERED: LIDOCAINE 1% 20 ML VIAL (10MG/ML) FOR IV START INTRADERMA ONE (08:42)
--- NOTE | 2018-11-29 09:46 | P.PCN ---
Date of Procedure: 11/29/18 Description of Procedure: Surgeon: Danita Godinez Pathology: none sent Condition: stable Disposition: PACU Description of Procedure: PREOPERATIVE DIAGNOSIS: Cervical spondylosis with Facet Arthropathy without myelopathy. POSTOPERATIVE DIAGNOSIS: Cervical spondylosis with Facet Arthropathy without myelopathy. PROCEDURES:Left Radiofrequency thermocoagulation, C3,4,5 medial branch with Fluroscopy Guidence ANESTHESIA: Local with 1% lidocaine; IV sedation with fentanyl and Versed. EBL: Minimal PROCEDURE INDICATION: The patient with neck pain secondary to cervical arthropathy who had more than 50% relief of her pain with previous diagnostic cervical medial branch block. PROCEDURE DESCRIPTION / TECHNIQUE: The patient was seen and identified in the preoperative area. Risks, benefits, complications, and alternatives were discussed with the patient, the patient agreed to proceed with the procedure and signed the consent. IV was started. Vital signs remained stable throughout the procedure. Patient was taken to the OR and time out was completed. The patient was placed in the prone position on the procedure table. A pillow was placed under the patients chest to increase the cervical interlaminar space. The cervical area was prepped and draped in the usual sterile fashion. Critical pause was taken. Vital signs were closely monitored during the procedure. Conscious sedation was used during the procedure to decrease patients anxiety. Using cross-table lateral fluoroscopy, the center of the trapezoid-shaped cervical pillars of C3,4,5were identified, marked, and localized with 1% lidocaine. Subsequently, a 20 [id number] radiofrequency cannula with a 10-mm active tip was advanced guided by A/P and transverse views of fluoroscopy to the target points mentioned above. . Each site then underwent motor testing at 2 Hz and 0 to 3 volt with local stimulation, but no radicular symptoms down the arm. Thereafter C3,4,5 sites underwent radiofrequency thermocoagulation at 80 degrees celsius for 90 seconds after injecting 0.5 ml of PF lidocaine 1%. After thermocoagulation, 1 ml of the block solution containing Dexamethasone 10 mg and 2 mL of preservative-free normal saline was injected at the C3,4,5 levels after negative aspiration of CSF and blood and with no paresthesias. Cannulas were retracted. Skin was cleansed and bandages were applied. COMPLICATIONS: No acute complications. COMMENTS: DISPOSITION / PLANS: The patient was placed in a supine position and transferred to the recovery area in a stable condition for observation and was discharged from the recovery room after meeting discharge criteria. Home discharge instructions given to the patient by the staff. The patient was reexamined prior to discharge.
[2018-11-29] MEDS ORDERED: IV FLUID CONTINUATION 1,000 ML IV ONE ×2 (09:52)
[2018-11-29 10:12] VITALS: BP 133/80; PULSE 77; RESP 20
--- NOTE | 2018-11-29 11:02 | FL ---
EXAMINATION TYPE: FL guided pain mgmt statistic DATE OF EXAM: 11/29/2018 FLUOROSCOPY Fluoroscopy time of 15 seconds was used during cervical radiofrequency block. 3 image/s document/s t he procedure.
== END 2018-11-29 10:23 | disposition home or self-care (01) ==
LOC: ORPAIN 07:56
PROVIDERS: ATTEND Anesthesiology
DX: M47.812 Spondylosis without myelopathy or radiculopathy, cervical region (principal); F17.200 Nicotine dependence, unspecified, uncomplicated; Z90.710 Acquired absence of both cervix and uterus
CPT/HCPCS: 64633; 64634; J2250; J1100; J3010; 99152

== ENCOUNTER → 2019-01-08 | Outpatient (CLI) | payer OTHER ==
[2019-01-08 12:20] VITALS: BP 117/73; PULSE 96; RESP 16
--- NOTE | 2019-01-08 14:01 | P.PN ---
Subjective Progress Note Date: 01/08/19 This is a follow-up visit for this 53 years old female with a chronic history of neck pain, she is taking a cervical spondylosis with cervical facet arthropathy, with done radiofrequency ablation of the medial paracervical area, and she is here for follow-up visit, she reported that her pain improved significantly after the radiofrequency she is able to function more, and she is very satisfied with the result of the radiofrequency, she denies any motor or sensory deficit, she continued to use [place] 7.5/325 and she is getting prescription refilled from her neurologist is Dr. Jauregui, she denies any side effect of the medication Objective - Vital Signs Vital signs: Vital Signs Temp Pulse 96 01/08/19 12:00 Resp 16 01/08/19 12:00 BP 117/73 01/08/19 12:00 Pulse Ox Intake & Output 01/07/19 01/08/19 01/08/19 18:59 06:59 18:59 Weight 62.142 kg - Exam Physical Examinations : -Constitutiona : Cooperative , not in acute distress . -HEENT : nech ; supple , no Lymphadenopathy , normal thyroid size . eyes : no ptosis , no icterus, no photophobia . - neurologic : Cranial nerve II to XII intact , no focal neurological deffecit . -psychatric : alert , oriented X 3 , appropriate affect , intact judgment and insight . -Lymphatic : no Lymphadenopathy . - musculoskeltal : Cervical Spine Normal Motor strength Assessment and Plan Plan: Assessment and plan= chronic neck pain secondary to cervical spondylosis, neck pain improved after radiofrequency ablation of the medial paracervical area Patient currently on [place] 7.5/325 when necessary. She denies any side effect of the medication She is getting prescription refills from her neurologist, she will follow with us when necessary Time with Patient: Less than 30
== END ==
LOC: PNWHC3 11:49
PROVIDERS: ATTEND Specialist
DX: G89.29 Other chronic pain (principal); M47.812 Spondylosis without myelopathy or radiculopathy, cervical region; Z79.891 Long term (current) use of opiate analgesic
CPT/HCPCS: 99211